=== PATIENT | female | born 1980 | race Caucasian/White ===

== ENCOUNTER 2023-08-09 15:32 | Inpatient (IN) | payer MEDICAID, SELFPAY ==
[2023-08-09] VITALS (21 sets, daily range): BP systolic 00–150; BP diastolic 00–93; PULSE 0–93; RESP 0–22; TEMP -17.7–36.8; O2SAT 0–100; BMI 33.1; BMI 27.4; BMI 30.4
--- NOTE | 2023-08-09 15:29 | ECG_ITS ---
APPROVED REPORT Exam: Resting ECG HR:69 bpm ECG Measurements Heart Rate 69 AXES IL 147 P 33 QRSd 98 QRS -80 QT 384 T 54 QTc 403 Conclusion SINUS RHYTHM LEFT ANTERIOR FASCICULAR BLOCK [QRS AXIS <= -45, QR IN I, RS IN II] ANTERIOR MYOCARDIAL INFARCTION , POSSIBLY ACUTE [40+ ms Q WAVE AND/OR ST/T ABNORMALITY IN V3/V4] ACUTE ME Electronically signed by : GALINDO ORR, 08/13/2023 16:15:45
--- NOTE | 2023-08-09 15:31 | IR_ITS ---
APPROVED REPORT Patient Location: [facility] Operator: GIO Izquierdo RT (R) PROCEDURES Left heart catheterization Left ventriculogram Selective coronary angiogram Mechanical thrombectomy to the LAD Drug-eluting stent deployment to the proximal mid LAD Drug-eluting stent deployment to the proximal mid and distal dominant right coronary INDICATION Acute anterior ST elevation myocardial infarction, Coronary artery disease, Right coronary artery stenosis with multivessel disease Informed consent was obtained prior to the procedure. COMPLICATIONS NONE Estimated Blood Loss: LESS THAN 10 ML TECHNIQUE One percent lidocaine used to anesthetize the right anterior aspect of the wrist. The right radial artery was accessed via the Seldinger technique. A 6 Yi sheath was placed in the right radial artery. 2.5 mg of Verapamil, 800 mcg of nitroglycerin, 1mg Lidocaine and 5000 U Heparin were given through the arterial sheath. The papa catheter was also used to perform left heart catheterization, left ventriculogram and selective coronary angiogram. At the end the diagnostic angiogram therapeutic heparin had already been administered through the arterial sheath and the guide catheter was placed in the left main artery followed by Choice PT extra-support wire being pushed through the occlusion. A penumbra mechanical thrombectomy catheter was used to mechanically aspirate a large thrombus thereby restoring CANDELARIO-3 flow. A 3 mm x 22 mm Jackson frontier stent was deployed at 20 bruce reducing the stenosis to 0%. A 3.5 x 12 mm noncompliant balloon was placed in the proximal and midportion and deployed at 20 bruce to further post dilate giving better stent expansion. CANDELARIO 0 flow was present at the beginning of the procedure with CANDELARIO-3 flow at the end of the procedure. Following this the right coronary artery angiogram was performed and the Choice PT extra-support wire was placed distally. A 3 mm x 38 mm Stroud frontier stent was deployed at 24 bruce in the mid to distal portion reducing the stenosis. A 3.5 x 30 mm Jackson frontier stent was placed proximal to this yet still overlapping and deployed at 20 bruce. The balloon was advanced and deployed at 20 bruce throughout the 38 mm stent. CANDELARIO-3 flow was present before and after the procedure. At the end the procedure the apparatus was removed the sheath was removed and hemostasis was achieved and TR banding patient transferred to postop holding in stable condition ANGIOGRAPHIC RESULTS The left main artery Normal The left anterior descending artery Initially proximally thrombosed however following revascularization there was wide patency of the LAD with CANDELARIO-3 flow throughout The circumflex artery Nondominant with 30 to 40% stenosis in the first obtuse marginal artery The right coronary artery Large dominant with proximal 60% stenosis followed by an additional 60 to 70% stenosis with a mid vessel 80% stenosis and distal 30% stenoses The CLAUDIO ventriculogram reveals Dilated ventricle anterior wall hypokinesis estimate ejection fraction 20% The left ventricular end-diastolic pressure 25 mmHg IMPRESSION Proximal LAD occlusion with successful mechanical thrombectomy restoring CANDELARIO-3 flow followed by drug-eluting stent to the proximal to mid LAD Severe disease throughout the dominant right coronary with successful stenting of the proximal mid and distal right coronary severe disease reduced to 0% with 2 contiguous drug-eluting stents Dilated ventricle with reduced ejection fraction Elevated LVEDP PLAN 1. Effient 10 mg daily plus aspirin 81 mg daily 2. LDL goal of 55 to proceed with high intensity statin 3. Start Entresto once hemodynamically stable 4. Echocardiogram with anticipated LifeVest prior to discharge home 5. Supportive care 6. Avoidance of tobacco products Electronically signed by : Ozzie May MD 08/09/2023 16:15:55
--- NOTE | 2023-08-09 15:56 | ED_ITS ---
Discharge Plan Disposition Patient Disposition: Admitted Clinical Impressions Clinical Impression: STEMI (ST elevation myocardial infarction) Discharge ED Provider: Tana Bower [facility] General Chief Complaint: Chest Pain Stated Complaint: STEMI ALERT Time Seen by Provider: 08/09/23 15:35 Mode of Arrival: EMS Source of Information: Patient and EMS Limitations: No Limitations Description of Symptoms (Recalled from ER Triage Doc. by RN): pt called ems for misternal chest pain that started at 0900 today and got worse despite treatments at home for anxiety and acid reflux, pt states the pain radiated into left side. EMS called a field stemi and experimental machining lab manager team notified. ems gave 324mg ASA, 0.4 mg SL nitro, 25 mcg fentanyl, and 4mg zofran. Lalo met patient in ER for 12 lead at 1530 and transported patient on monitor with zoll pads to experimental machining lab manager, no vitalls, labs, or studies collected History of Present Illness HPI narrative: This patient is a 43-year-old female with history of tobacco use disorder presenting to the emergency department for evaluation with concern for chest pain. Per EMS, they were called to the patient's home for chest pain that started around 9:00 this morning. They were concerned for STEMI on ECG, so they gave the patient 324 mg of aspirin, 0.4 mg of sublingual nitroglycerin. They also gave her 25 mcg of fentanyl as well as 4 mg of Zofran for pain and nausea. Patient states initially she thought that this pain was indigestion, however got progressively worse throughout the day. It substernal radiates to the left side. Nothing is made it better or worse. Upon arrival, after review of pre- Hospital EKG, I activated Training Developer. Related Data Allergies Allergy/AdvReac Type Severity Reaction Status Date / Time No Known Allergies Allergy Verified 08/09/23 15:33 [facility] Disclaimer: The information contained in this section may have been updated after the pat ient was seen, as this information can be updated by other users. Social History Smoking Status: Current every day smoker alcohol intake: never current occupational status: employed Travel in the last 8 weeks: None ROS Obtained: Yes All systems reviewed & no additional complaints except as documented Physical Exam General General appearance: alert, in no apparent distress and obese Comment: Uncomfortable appearing Head Head exam: atraumatic and normocephalic Eye Eye exam: Present normal appearance, PERRL and EOMI ENT ENT exam: Present normal exam, normal oropharynx, mucous membranes moist and normal external ear exam Neck Neck exam: Present normal inspection, full ROM and trachea midline; Absent tenderness Chest Chest inspection: Present normal inspection and symmetric chest wall rise; Absent tenderness Respiratory Respiratory exam: Present normal lung sounds bilaterally; Absent respiratory distress, wheezes, stridor or accessory muscle use Cardiovascular Cardiovascular exam: Present regular rate and normal rhythm Abdominal Exam Abdominal exam: Present soft; Absent distention, tenderness or guarding Extremities Exam Extremities exam: Present normal inspection, full ROM and normal capillary refill; Absent tenderness or edema Back Exam Back exam: Present normal inspection and full ROM; Absent tenderness Neurological Exam Neurological exam: Present alert, oriented X3, CN II-XII intact and normal gait; Absent motor sensory deficit Psychiatric Psychiatric exam: Present normal affect and normal mood Skin Skin exam: Present warm and dry HEART Score HEART Score HEART Score assessment performed?: No Critical Care Critical Care Time Critical Care Time: No Medical Decision Making Liu Inquiry Pt receiving controlled substance: No Vital Signs Vital Signs: 08/09/23 15:29 08/09/23 15:49 Temperature 0 F L Pulse Rate 0 L Respiratory Rate 20 0 L Blood Pressure 00/00 L 02 Sat by Pulse Oximetry 98 Response Orders (Tests/Meds): ED MEDICATIONS Generic Name Dose Route Start Last Admin Trade Name Freq PRN Reason Stop Dose Admin Fentanyl Citrate 50 mcg 08/09/23 15:33 Fentanyl 100mcg/2ml Vial IV 08/10/23 03:33 Q3MINP PRN Moderate to Severe Pain (4-10) Fentanyl Citrate 25 mcg 08/09/23 15:33 Fentanyl 250mcg/5ml Vial IV 08/10/23 03:33 Q3MINP PRN Moderate to Severe Pain (4-10) Fentanyl Citrate 50 mcg 08/09/23 15:33 Fentanyl 250mcg/5ml Vial IV 08/10/23 03:33 Q3MINP PRN Moderate to Severe Pain (4-10) Fentanyl Citrate 25 mcg 08/09/23 15:33 Fentanyl 100mcg/2ml Vial IV 08/10/23 03:33 Q3MINP PRN Moderate to Severe Pain (4-10) Flumazenil 0.2 mg 08/09/23 15:33 Flumazenil 0.1mg/Ml 5ml Vial IV 08/10/23 03:33 NEEDED PRN Sedation Heparin Sodium (Porcine) 10,000 unit 08/09/23 15:33 Heparin 1,000 Units/Ml 10ml Vial (Training Developer) IV 08/09/23 19:33 NEEDED PRN Emergency Box Annealing Furnace Operator Hydralazine HCl 20 mg 08/09/23 15:33 Hydralazine 20mg/Ml Vial IV 08/09/23 19:33 ONCE PRN sbp>160 Adenosine 180 mg/ Sodium 90 mls @ 458.039 mls/hr 08/09/23 15:33 Chloride IV 08/09/23 19:33 ONCE PRN fractional flow reserve 180 MCG/KG/MIN Adenosine 90 mg/ Sodium 90 mls @ 916.078 mls/hr 08/09/23 15:33 Chloride IV 08/09/23 19:33 ONCE PRN fractional flow reserve 180 MCG/KG/MIN Sodium Chloride 1,000 mls @ 25 mls/hr 08/09/23 15:45 Sod Chloride 0.9% 500ml Bag IV 08/10/23 15:33 .Q25H JT Labetalol HCl 20 mg 08/09/23 15:33 Labetalol 20mg/4ml Syringe IV 08/09/23 19:33 ONCE PRN sbp>160 Midazolam HCl 1 mg 08/09/23 15:33 Midazolam 2mg/2ml Vial IV 08/10/23 03:33 Q3MINP PRN Sedation Midazolam HCl 1 mg 08/09/23 15:33 Midazolam Hcl 1mg/1ml 5ml Vial IV 08/10/23 03:33 Q3MINP PRN Sedation Naloxone HCl 0.4 mg 08/09/23 15:33 Naloxone 0.4mg/Ml Vial IV 08/10/23 03:33 Q5MINP PRN Decreased Respirations Nitroglycerin 800 mcg 08/09/23 15:33 Nitroglycerin 800mcg/8ml Syr (Training Developer) IA 08/09/23 19:33 NEEDED PRN Emergency Box Annealing Furnace Operator Protamine Sulfate 50 mg 08/09/23 15:33 Protamine Sulfate 50mg/5ml Vial (Training Developer) IV 08/09/23 19:33 ONCE PRN act>200 Discontinued Medications Generic Name Dose Route Start Last Admin Trade Name Freq PRN Reason Stop Dose Admin Diphenhydramine HCl 50 mg 08/09/23 15:33 Diphenhydramine 50mg/Ml Vial IV 08/09/23 15:34 ONCE ONE Heparin Sodium/Sodium Chloride 3,000 unit 08/09/23 15:33 Heparin 1,000 Units/500ml Ns (Training Developer) IV 08/09/23 15:34 ONCE ONE Lidocaine HCl 20 ml 08/09/23 15:33 Lidocaine 1% 10ml Mdv IJ 08/09/23 15:34 ONCE ONE Lidocaine HCl 20 ml 08/09/23 15:33 Lidocaine 1% 5ml Pf Vial IJ 08/09/23 15:34 ONCE ONE Verapamil HCl 2.5 mg 08/09/23 15:33 Verapamil 2.5mg/Ml 2ml Vial IV 08/09/23 15:34 ONCE ONE ORDERS Category Date Time Status Basic Metabolic Panel Stat Lab 08/09/23 15:33 Ordered Complete Blood Count Auto Diff Stat Lab 08/09/23 15:33 Ordered MDM Narrative Medical Decision Narrative: In summary, this patient is a 43-year-old female presenting to the Emergency Department for evaluation of chest pain. Differential diagnoses considered include but are not limited to STEMI, ACS, dysrhythmia, GERD, costochondritis. Ruling out the most morbid conditions drove assessment. It should be noted patient's history includes tobacco use disorder which is not at goal therapy. This complicates all aspects of care by increasing patient's risk for morbidity. On exam, the patient is uncomfortable appearing. Given STEMI on prehospital EKG, Training Developer was activated by myself. Cardiology arrived at bedside and wanted twelve-lead EKG, which confirmed STEMI. ECG interpreted by myself immediately upon patient's arrival at 1530 demonstrated normal sinus rhythm with acute ST elevations in the anterolateral leads concerning for acute ischemia. She also left anterior fascicular block. Patient then taken to Training Developer right away prior to lab evaluation or imaging for cardiac catheterization with concern for STEMI. Patient was taken in stable condition.
[2023-08-09] MEDS: VERAPAMIL 2.5MG/ML 2ML VIAL 2.5 MG IV (16:00)
[2023-08-09] MEDS: diphenhydrAMINE 50MG/ML VIAL 50 MG IV (16:00)
[2023-08-09] MEDS: HEPARIN 1,000 UNITS/ML 10ML VIAL (CATH LAB) 10000 UNIT IV (16:01)
[2023-08-09] MEDS: NITROGLYCERIN 800MCG/8ML SYR (CATH LAB) 800 MCG IA (16:01)
[2023-08-09] MEDS: LIDOCAINE 1% 10ML MDV 20 ML IJ (16:01)
[2023-08-09] MEDS: HEPARIN 1,000 UNITS/500ML NS (CATH LAB) 3000 UNIT IV (16:01)
[2023-08-09] MEDS: 0.9 % SODIUM CHLORIDE 500 ML 25 ML IV (16:02)
[2023-08-09] MEDS: MIDAZOLAM HCL 1MG/1ML 5ML VIAL 1 MG IV (16:03)
[2023-08-09] MEDS: FENTANYL 100MCG/2ML VIAL 50 MCG IV (16:03)
--- NOTE | 2023-08-09 16:05 | PC.NURSE ---
Patient left er for greens laborer at 1531.
[2023-08-09] MEDS: PROMETHAZINE HCL 25MG/ML 1ML VIAL 25 MG IV (16:11)
[2023-08-09] MEDS: PRASUGREL 10MG TAB 60 MG PO (16:11)
[2023-08-09] MEDS: IOPAMIDOL-370 (76%);100ML BOTTLE 120 ML IV (16:26)
[2023-08-09 16:29] LABS: CATHL Activated Clotting Time > 400 SEC (74-125)
--- NOTE | 2023-08-09 16:35 | ECG_ITS ---
APPROVED REPORT Exam: Resting ECG HR:79 bpm ECG Measurements Heart Rate 79 AXES AR 137 P 44 QRSd 92 QRS 259 QT 378 T 64 QTc 412 Conclusion SINUS RHYTHM ANTEROLATERAL MYOCARDIAL INFARCTION , PROBABLY RECENT [40+ ms Q WAVE IN I/aVL/V3-V6] ACUTE [place] INTERPRETATION BASED ON A DEFAULT AGE OF 42 YEARS UNCONFIRMED REPORT Electronically signed by : Shorty Rubalcava MD 08/11/2023 12:25:06
--- NOTE | 2023-08-09 16:54 | PC.NURSE ---
arrived by galener from optical laboratory mechanic
--- NOTE | 2023-08-09 17:22 | PC.NURSE ---
spoke with Dr. Allred about status of this patient, Dr. Allred stated this patient could be med/surg
[2023-08-09] MEDS: HEPARIN SODIUM 5,000 UNIT/ML VIAL 5000 UNIT SQ (17:32)
[2023-08-09 17:47] LABS: Basophils # 0.1 K/mm3 (0-0.2); Basophils % 0.5 % (0.1-2.0); Eosinophils % 0.1 % (0.1-12.0); Hematocrit 49.2 % (37.0-47.0); Hemoglobin 15.9 g/dL (12.2-16.2); Lymphocytes # 2.1 K/mm3 (0.7-4.5); Lymphocytes % 10.3 % (10-50); Mean Corpuscular HGB Conc 32.4 g/dL (31.8-35.4); Mean Corpuscular Hemoglobin 31.3 pg (27.0-31.2); Mean Corpuscular Volume 96.6 fl (81-99); Mean Platelet Volume 8.4 fl (7.4-10.4); Monocytes # 0.5 K/mm3 (0.1-1.0); Monocytes % 2.5 % (1.7-9.3); Neutrophils # 17.9 K/mm3 (1.8-7.8); Neutrophils % 86.6 % (37.0-80.0); Platelet Count 274 K/mm3 (142-424); Red Blood Count 5.09 M/mm3 (4.20-5.40); Red Cell Distribution Width 14.3 % (11.5-17.5); White Blood Count 20.6 K/mm3 (4.8-10.8)
[2023-08-09 17:49] LABS: MANUAL DIFFERENTIAL MANUAL DIFFERENTIAL (MANUAL DIFF)
--- NOTE | 2023-08-09 17:49 | PC.NURSE ---
Pt is extremely drowsy at this time. no family is present with her. pt has never been to this facility and no medical history or medications are available in system. when asked if pt has anyone she wants me to notify of her admission, pt indicates her mom Maryana Serna. pt indicated phone number for mom. when number was called, number only beeped. when asking pt again, pt states that she does not have any number for her mom. when asked who she would like to make decisions for her, she would only shrug her shoulders. will attempt admission again when pt is more alert.
[2023-08-09 17:54] LABS: Chloride 108 mmol/L (98-107); Potassium 3.8 mmoL/L (3.5-5.1); Sodium 136 mmol/L (136-145)
[2023-08-09 17:57] LABS: Anion Gap 13.8 mEq/L (5-15); Blood Urea Nitrogen 4 mg/dl (7-17); Carbon Dioxide 18 mmol/L (22.0-30.0); Creatinine Clearance Estimated 198 mL/min (50-200); Estimated Glomerular Filt Rate 136 ml/min (>60); GFR (African American) 165 ML/MIN (>60); Glucose 116 mg/dl (74-100)
[2023-08-09 18:10] LABS: Lymphocytes % 21 % (10-50); Monocytes % 1 % (2-9); Neutrophils % 78 % (42-76); Platelet Estimate Normal; RBC Morphology Normal; Total Cells Counted 100
--- NOTE | 2023-08-09 18:23 | PC.NURSE ---
pt came up to the floor this afternoon d/t STEMI. pt had heart cath this afternoon d/t STEMi. refer to terrazzo laborer note for further detail. pt slightly unaware of surroundings d/t sedation used during cath. lung sounds clear throughout. terrazzo laborer vitals are still in place. bowel sounds active x4 quadrants. lung sounds clear throughout. no new orders at this time.
--- NOTE | 2023-08-09 18:37 | PC.NURSE ---
pt is more awake at this time, visitor in room was able to assist pt to navigate her phone and contact her mom. pt also states that she does not have a pcp
--- NOTE | 2023-08-09 19:00 | PC.NURSE ---
All care and documentation provided by Zoya IRELAND was completed under my direct supervision. Bozena Suarez RN
--- NOTE | 2023-08-09 19:04 | PC.NURSE ---
1810-2ml air removed, no bleeding/hematoma noted 1825-2ml air removed, no bleeding/hematoma noted 1840-2ml air removed, no bleeding/hematoma noted 1855-2ml air removed, no bleeding/hematoma noted
--- NOTE | 2023-08-09 20:10 | ECG_ITS ---
APPROVED REPORT Exam: Resting ECG HR:73 bpm ECG Measurements Heart Rate 73 AXES MA 137 P 43 QRSd 88 QRS 195 QT 382 T 75 QTc 408 Conclusion SINUS RHYTHM WITH FREQUENT VENTRICULAR PREMATURE COMPLEXES POSSIBLE RIGHT VENTRICULAR HYPERTROPHY [SOME/ALL OF: PROMINENT R IN V1, LATE TRANSITION, RAD, YOVANNY, SSS] ANTEROLATERAL MYOCARDIAL INFARCTION , PROBABLY RECENT [40+ ms Q WAVE IN I/aVL/V3-V6] ACUTE [place] UNCONFIRMED REPORT Electronically signed by : Shorty Rubalcava MD 08/11/2023 12:25:03
[2023-08-09 20:29] LABS: Magnesium 1.8 mg/dl (1.6-2.3)
--- NOTE | 2023-08-09 20:59 | P.HP_ITS ---
History of Present Illness *Admission Date: 08/09/23 *Reason for visit:: STEMI *History of present illness: This is a 43-year-old female with past medical history of tobacco use disorder, hypertension who presents emergency department today with chest pain. EMS was called to the patient's home for chest pain that started around 9 this morning. She was noted to have a EKG with STEMI in the field which was activated. Upon arrival to the emergency department STEMI was confirmed and patient was taken to the Day Care Provider. She underwent 3 stents with PCI with 1 to the LAD and 2 to the RCA. Post cath vital signs have been stable. She is admitted to the hospitalist service On my assessment patient is sleeping but arousable. States that she feels awful . States that she still has soreness in her chest. Repeat EKG with PVCs versus possible secondary type I block. Patient otherwise without acute abnormalities. Per cardiology, continue Effient and aspirin daily, echocardiogram in a.m. [facility] Disclaimer: The information contained in this section may have been updated after the patient was seen, as this information can be updated by other users. Medical History Anxiety GERD (gastroesophageal reflux disease) Surgical History (Updated 08/09/23 @ 18:55 by Bozena Suarez RN) H/O dilation and curettage Social History (Updated 08/09/23 @ 18:56 by Bozena Suarez RN) Smoking Status: Current every day smoker alcohol intake: current current occupational status: employed Travel in the last 8 weeks: None Review of Systems Review of Systems Review of systems:: other (All other ROS negative except for HPI.) Meds Home Medications and Allergies New Prescriptions to Start Prescriptions: Allergies Allergy/AdvReac Type Severity Reaction Status Date / Time No Known Allergies Allergy Verified 08/09/23 15:33 Exam Data for Last 24 hours Vital signs and Labs for Last 24 Hours: Temp Pulse Resp BP Pulse Ox O2 Del Method 98.1 F 63 16 121/84 96 Room Air 08/09/23 20:00 08/09/23 20:00 08/09/23 20:00 08/09/23 20:00 08/09/23 20:00 08/09/23 20:00 Laboratory Results - last 24 hr 08/09/23 15:46: Activated Clotting Time > 400 H* 08/09/23 17:39: WBC 20.6 H*, RBC 5.09, Hgb 15.9, Hct 49.2 H, MCV 96.6, MCH 31.3 H, MCHC 32.4, RDW 14.3, Plt Count 274, MPV 8.4, Neut % (Auto) 86.6 H, Lymph % (Auto) 10.3, [place] % (Auto) 2.5, Eos % (Auto) 0.1, Baso % (Auto) 0.5, Neut # (Auto) 17.9 H, Lymph # (Auto) 2.1, [place] # (Auto) 0.5, Eos # (Auto) 0.0, Baso # (Auto) 0.1, Total Counted 100, Neutrophils % (Manual) 78 H, Lymphocytes % (Manual) 21, Monocytes % (Manual) 1 L, Platelet Estimate Normal, RBC Morphology Normal, Sodium 136, Potassium 3.8, Chloride 108 H, Carbon Dioxide 18 L, Anion Gap 13.8, BUN 4 L, Creatinine 0.50 L, Estimated Creat Clear 198, Estimated GFR 136, Est GFR ( Amer) 165, Glucose 116 H, Calcium 9.0, Magnesium 1.8 I & O for Last 24 hours: Intake & Output 08/06/23 08/07/23 08/08/23 08/09/23 23:59 23:59 23:59 23:59 Weight 80.484 kg Constitutional Constitutional: no acute distress *Routine HEENT Exam Head: Present normocephalic Eye: Present EOMI and PERRL ENT: Present mucous membranes moist *Routine Neck Exam Neck: Present supple; Absent lymphadenopathy *Routine Respiratory Exam Respiratory: Present CTA bilaterally *Routine Cardiovascular Exam Cardiovascular: Present irregular rhythm *Routine Abdominal Exam Abdominal: Present soft and normoactive bowel sounds; Absent tenderness *Routine Rectal Exam Rectal:: deferred *Routine Genitalia Exam Genitalia:: deferred *Routine Extremities Exam Extremities: Absent cyanosis, clubbing or edema *Routine Skin Exam Skin: Present warm; Absent rash *Routine Neurological Exam Neurological: Present alert and oriented X3 Assessment and Plan *Assessment and plan (1) STEMI (ST elevation myocardial infarction): Status: Acute Qualifiers: Involved coronary artery: LAD coronary artery Qualified Code(s): I21.02 - ST elevation (STEMI) myocardial infarction involving left anterior descending coronary artery Category: Medical Code(s): I21.3 - ST elevation (STEMI) myocardial infarction of unspecified site (2) CAD (coronary artery disease): Status: Acute Qualifiers: Coronary Disease-Associated Artery/Lesion type: [place] artery Category: Medical Code(s): I25.10 - Atherosclerotic heart disease of [place] coronary artery without angina pectoris (3) Leukocytosis: Status: Acute Qualifiers: Leukocytosis type: other Qualified Code(s): D72.828 - Other elevated white blood cell count Category: Medical Code(s): D72.829 - Elevated white blood cell count, unspecified Plan #CAD #STEMI Underwent successful LAD thrombectomy with PCI with 3 NEIRSSA. 1 to the LAD, 2 to the RCA. Continue Effient and aspirin per cardiology Echocardiogram in the morning with possible discharge of LifeVest Monitor post-cath rhythm closely Tobacco cessation Entresto once hemodynamically A1c and lipid panel pending #Tobacco use Encourage abstinence #Leukocytosis No evidence of infection, likely clot burden Will monitor for further signs of DVT PPx subcu heparin
[2023-08-09] MEDS: ACETAMINOPHEN 325MG TAB 650 MG PO (21:37)
[2023-08-09] MEDS: HYDROCODONE/APAP 5/325 MG TABLET 1 TAB PO (21:37)
[2023-08-09] MEDS: MELATONIN 5MG TABLET 5 MG PO (23:37)
[2023-08-10] VITALS (18 sets, daily range): BP systolic 95–120; BP diastolic 67–79; PULSE 59–90; RESP 16–25; TEMP 36.7–37; O2SAT 93–100; BMI 29.9
[2023-08-10] MEDS: HEPARIN SODIUM 5,000 UNIT/ML VIAL 5000 UNIT SQ ×3 (01:24→16:17)
[2023-08-10 06:05] LABS: Basophils # 0.2 K/mm3 (0-0.2); Basophils % 1.2 % (0.1-2.0); Eosinophils # 0.2 K/mm3 (0.0-0.4); Eosinophils % 0.8 % (0.1-12.0); Hemoglobin 15.6 g/dL (12.2-16.2); Lymphocytes # 5.8 K/mm3 (0.7-4.5); Lymphocytes % 30.4 % (10-50); Mean Corpuscular HGB Conc 32.6 g/dL (31.8-35.4); Mean Corpuscular Volume 95.2 fl (81-99); Mean Platelet Volume 8.3 fl (7.4-10.4); Monocytes # 1.1 K/mm3 (0.1-1.0); Monocytes % 5.7 % (1.7-9.3); Neutrophils # 11.8 K/mm3 (1.8-7.8); Platelet Count 299 K/mm3 (142-424); Red Blood Count 5.04 M/mm3 (4.20-5.40); Red Cell Distribution Width 14.5 % (11.5-17.5)
[2023-08-10 06:07] LABS: MANUAL DIFFERENTIAL MANUAL DIFFERENTIAL (MANUAL DIFF)
[2023-08-10 06:10] LABS: Anion Gap 11.8 mEq/L (5-15); Blood Urea Nitrogen 7 mg/dl (7-17); Calcium 9.4 mg/dl (8.4-10.2); Carbon Dioxide 22 mmol/L (22.0-30.0); Chloride 107 mmol/L (98-107); Creatinine Clearance Estimated 133 mL/min (50-200); Estimated Glomerular Filt Rate 92 ml/min (>60); GFR (African American) 112 ML/MIN (>60); Glucose 94 mg/dl (74-100); Potassium 3.8 mmoL/L (3.5-5.1); Sodium 137 mmol/L (136-145)
[2023-08-10 06:56] LABS: Chol/HDL Ratio 6.3 (1-3.5); Cholesterol 258 mg/dl (140-200); HDL Cholesterol 41 mg/dl (40-60); Triglycerides 282 mg/dl (30-150); VLDL Cholesterol 56 mg/dL (0-40)
--- NOTE | 2023-08-10 07:00 | CA_ITS ---
APPROVED REPORT EXAM: Comprehensive 2D, Doppler, and color-flow Echocardiogram Die Sinker: Paulette Robison CRT Ht: 5 ft 4 in Wt: 177lbs BSA: 1.86 BP: 121/84 mmHg Indications: Chest Pain, STEMI Echo Enhancing Agent Indication: Rule out thrombus Agent(s) / Amount(s) Used: Definity 2 cc 2D Dimensions LA Volume 40.40 mL LA Volume Index 21.30 mL/m2 (M/F) 16-34 M-Mode Dimensions RVDd 2.57 cm (0.9-2.6) LA Diam 3.78 cm (1.9-4.0) LVDd 5.07 cm (3.5-5.7) LVDs 3.61 cm (3.5-5.7) IVSd 1.43 cm (0.6-1.1) PWd 1.04 cm (0.6-1.1) EF (Teich) 55.10% FS 28.80% EDV (Teich) 122.10 mL TAPSE 1.76 (<1.7) ESV (Teich) 54.80 mL LV Diastology MED A' 11.30 cm/s LAT A' 11.30 cm/s Aortic Valve AI PHT 449.00 ms AO Peak GR. 5.90 mmHg Pulmonary Valve PV Peak Velocity 102.0 (50-150 cm/s) Tricuspid Valve TR P. Velocity 264.00 cm/s RAP Estimate 10.00 mmHg RVSP 38.00 mmHg Left Ventricle The left ventricle is normal size. Left ventricular systolic function is severely decreased. There is increased LV wall thickness. There is severe global hypokinesis present. The mid to distal henao, including the anterior, septal, anteroseptal, and inferoseptal LV henao are akinetic. The LV apex is also akinetic. Diastolic function is indeterminate. No left ventricle thrombus noted on this study. LVEF is 25%. Right Ventricle The right ventricle is normal size. The right ventricular systolic function is normal. Atria The left atrium size is normal. The right atrium size is normal. There is no Doppler evidence of interatrial shunt. Aortic Valve The aortic valve opens well. There is no aortic valvular stenosis. Trace aortic regurgitation. Mitral Valve The mitral valve is normal in structure. No evidence of mitral valve stenosis. Trace mitral regurgitation. Tricuspid Valve The tricuspid valve leaflets are thin and pliable. Mild tricuspid regurgitation. RVSP is 45-50 mmHg. Pulmonic Valve The pulmonary valve is normal in structure. Trace pulmonic regurgitation. Great Vessels The aortic root is normal in size. The ascending aorta is normal in size. The IVC is dilated, collapses < 50% with respirophasic variation. RA pressure is estimated at 15 mmHg. Pericardium There is no pericardial effusion. Other Information Study Quality: Fair Conclusion Severely reduced LV systolic function (LVEF 25%). Mid to distal henao, including the anterior, septal, anteroseptal, and inferoseptal LV henao are akinetic. The LV apex is also akinetic. Mild TR. Elevated RVSP 45-50 mmHg. Electronically signed by : Dominga Damon MD 08/10/2023 12:14:06
[2023-08-10 07:07] LABS: Direct LDL Cholesterol 145.67 mg/dL (100-129)
[2023-08-10 08:14] LABS: Eosinophils % 1 % (0-3); Lymphocytes % 36 % (10-50); Monocytes % 13 % (2-9); Neutrophils % 45 % (42-76); Total Cells Counted 100
[2023-08-10 08:17] LABS: Platelet Estimate Normal; RBC Morphology Normal
[2023-08-10] MEDS: PRASUGREL 10MG TAB 10 MG PO (08:38)
[2023-08-10] MEDS: ASPIRIN 81MG CHEWABLE TABLET 81 MG PO (08:38)
--- NOTE | 2023-08-10 09:30 | PC.NURSE ---
pt up to the shower at this time.
--- NOTE | 2023-08-10 10:33 | ECG_ITS ---
APPROVED REPORT Exam: Resting ECG HR:64 bpm ECG Measurements Heart Rate 64 AXES DC 138 P 35 QRSd 87 QRS 248 QT 396 T 91 QTc 406 Conclusion SINUS RHYTHM RIGHT AXIS DEVIATION [QRS AXIS > 100] LOW QRS VOLTAGE IN EXTREMITY LEADS [QRS DEFLECTION < 0.5 mV IN LIMB LEADS] ANTERIOR MYOCARDIAL INFARCTION , PROBABLY RECENT [40+ ms Q WAVE AND/OR ST/T ABNORMALITY IN V3/V4] ACUTE IN UNCONFIRMED REPORT Electronically signed by : Shorty Rubalcava MD 08/11/2023 12:24:51
[2023-08-10] MEDS: SACUBITRIL/VALSARTAN 24-26MG TABLET 1 EACH PO ×2 (10:53→20:12)
--- NOTE | 2023-08-10 13:02 | P.CONCA_ITS ---
History of Present Illness History of Present Illness Consult date: 08/09/23 Requesting physician: Isaac Allred Consult reason: chest pain Chief complaint: Chest pain History of present illness: 43-year-old white female without known chronic medical problems, daily smoker. Patient states she has been under significant stress due to personal reasons recently. Yesterday was at home and began feeling severe sudden onset chest pressure, no modifying factors. She called EMS and told him she thought she was having a heart attack. Patient was found to have anterolateral ST elevations and transported immediately to ER where she underwent thrombectomy and stenting of LAD. She also had numerous severe lesions in RCA which was stented successfully, left circumflex 30-40%, reduced EF. I am seeing her at the [facility] she reports symptoms are improved, vitals and labs are stable, echo is pending. [facility] Disclaimer: The information contained in this section may have been updated after the patient was seen, as this information can be updated by other users. Medical History Anxiety GERD (gastroesophageal reflux disease) Surgical History H/O dilation and curettage Social History Smoking Status: Current every day smoker alcohol intake: current current occupational status: employed Travel in the last 8 weeks: None Review of Systems Constitutional Constitutional: Denies fatigue and Denies weakness Eyes Eyes: Denies loss of vision ENT Ears, Nose, Mouth, and Throat: Denies hearing loss and Denies vertigo *Cardiovascular Cardiovascular: Reports chest pain, Denies dyspnea and Denies syncope *Respiratory Respiratory: Denies cough and Denies dyspnea *Gastrointestinal Gastrointestinal: Denies change in stool character, Denies nausea and Denies vomiting *Musculoskeletal Musculoskeletal: Denies muscle weakness Integumentary/Breasts Skin/Breast: Denies changing lesions *Neurologic Neurologic: Denies loss of vision, Denies syncope, Denies vertigo and Denies weakness Endocrine Endocrine: Denies fatigue Exam Data for Last 24 hours Vital signs and Labs for Last 24 Hours: Temp Pulse Resp BP Pulse Ox O2 Del Method 98.5 F 66 16 116/76 100 Room Air 08/10/23 11:49 08/10/23 11:49 08/10/23 11:49 08/10/23 11:49 08/10/23 11:49 08/10/23 12:42 Laboratory Results - last 24 hr 08/09/23 15:46: Activated Clotting Time > 400 H* 08/09/23 17:39: WBC 20.6 H*, RBC 5.09, Hgb 15.9, Hct 49.2 H, MCV 96.6, MCH 31.3 H, MCHC 32.4, RDW 14.3, Plt Count 274, MPV 8.4, Neut % (Auto) 86.6 H, Lymph % (Auto) 10.3, [place] % (Auto) 2.5, Eos % (Auto) 0.1, Baso % (Auto) 0.5, Neut # (Auto) 17.9 H, Lymph # (Auto) 2.1, [place] # (Auto) 0.5, Eos # (Auto) 0.0, Baso # (Auto) 0.1, Total Counted 100, Neutrophils % (Manual) 78 H, Lymphocytes % (Manual) 21, Monocytes % (Manual) 1 L, Platelet Estimate Normal, RBC Morphology Normal, Sodium 136, Potassium 3.8, Chloride 108 H, Carbon Dioxide 18 L, Anion Gap 13.8, BUN 4 L, Creatinine 0.50 L, Estimated Creat Clear 198, Estimated GFR 136, Est GFR ( Amer) 165, Glucose 116 H, Calcium 9.0, Magnesium 1.8 08/10/23 05:15: WBC 19.0 H, RBC 5.04, Hgb 15.6, Hct 48.0 H, MCV 95.2, MCH 31.0, MCHC 32.6, RDW 14.5, Plt Count 299, MPV 8.3, Neut % (Auto) 62.0, Lymph % (Auto) 30.4, [place] % (Auto) 5.7, Eos % (Auto) 0.8, Baso % (Auto) 1.2, Neut # (Auto) 11.8 H, Lymph # (Auto) 5.8 H, [place] # (Auto) 1.1 H, Eos # (Auto) 0.2, Baso # (Auto) 0.2, Total Counted 100, Neutrophils % (Manual) 45, Band Neutrophils % 5.0, Lymphocytes % (Manual) 36, Monocytes % (Manual) 13 H, Eosinophils % (Manual) 1, Platelet Estimate Normal, RBC Morphology Normal, Sodium 137, Potassium 3.8, Chloride 107, Carbon Dioxide 22, Anion Gap 11.8, BUN 7 D, Creatinine 0.70 D, Estimated Creat Clear 133, Estimated GFR 92, Est GFR ( Amer) 112 D, Glucose 94, Calcium 9.4, Triglycerides 282 H, Cholesterol 258 H, LDL Cholesterol Direct 145.67 H, VLDL Cholesterol 56 H, HDL Cholesterol 41, Cholesterol/HDL Ratio 6.3 H I & O for Last 24 hours: Intake & Output 08/07/23 08/08/23 08/09/23 08/10/23 23:59 23:59 23:59 23:59 Intake Total 120 / 120 Output Total 0 / 0 0 / 0 Balance 0 / 0 120 / 120 Weight 177 lb 7 oz 175 lb 3.2 oz Constitutional Constitutional: no acute distress and cooperative *Routine HEENT Exam Eye: Present PERRL *Routine Respiratory Exam Respiratory: Present CTA bilaterally; Absent accessory muscle use, wheezes or crackles *Routine Cardiovascular Exam Cardiovascular: Present RRR, Normal S1 and Normal S2; Absent murmur, gallop or rubs Comments: Right radial cath site normal on inspection and palpation *Routine Abdominal Exam Abdominal: Present soft; Absent tenderness *Routine Extremities Exam Extremities: Present pulses intact; Absent cyanosis or edema *Routine Skin Exam Skin: Present intact; Absent erythema or wounds *Routine Neurological Exam Neurological: Present alert and oriented X3 Routine Psychiatric Exam Psychiatric: Present cooperative Meds Home Medications and Allergies Home Medications Medication Instructions Recorded Confirmed Type No Known Home Medications 08/10/23 08/10/23 History New Prescriptions to Start Prescriptions: Allergies Allergy/AdvReac Type Severity Reaction Status Date / Time No Known Allergies Allergy Verified 08/09/23 15:33 Assessment and Plan *Assessment and plan (1) STEMI (ST elevation myocardial infarction): Status: Acute Qualifiers: Involved coronary artery: LAD coronary artery Qualified Code(s): I21.02 - ST elevation (STEMI) myocardial infarction involving left anterior descending coronary artery Category: Medical Code(s): I21.3 - ST elevation (STEMI) myocardial infarction of unspecified site (2) CAD (coronary artery disease): Status: Acute Qualifiers: Coronary Disease-Associated Artery/Lesion type: [place] artery Category: Medical Code(s): I25.10 - Atherosclerotic heart disease of [place] coronary artery without angina pectoris (3) HFrEF (heart failure with reduced ejection fraction): Status: Acute Category: Medical Code(s): I50.20 - Unspecified systolic (congestive) heart failure (4) Tobacco use: Status: Acute Category: Social Hx Code(s): Z72.0 - Tobacco use Plan MV-CAD s/p AW-STEMI and NERISSA to LAD/RCA 08/09/2023 - new dx this admission - CCS = 1, EKG with anterior q-waves - LHC - LAD thrombectomy, multiple stents to RCA, LCX 30-40% reduced EF - ECHO - EF 25-30% - Cont ASA, Effient - Add Atorvastatin, Toprol - pt will need cardiac rehab at discharge HFrEF, Ischemic Cardiomyopathy - new dx this admission with EF 25% on ECHO post LAD STEMI - ECHO - EF 25-30% - Does not appear volume overloaded - Plan: Start Entresto, Jardiance. No Aldactone due to low BP. Pt will need LifeVest Tob - advised complete cessation, pt agreeable to transdermal nicotine HLD - LDL 145, TG 282 - Atorvastatin added this admission 08/09: CV stable. Add GDMT and LifeVest for HFrEF. Need 48h observation post STEMI.
[2023-08-10] MEDS: METOPROLOL SUCCINATE XL 25MG TABLET 25 MG PO (13:18)
[2023-08-10] MEDS: EMPAGLIFLOZIN 10MG TABLET 10 MG PO (13:18)
--- NOTE | 2023-08-10 16:26 | PC.NURSE ---
pt alert and oriented t/o shift. ls cta. Sinus rhythm on monitor. abdomen soft, nontender, bs active. pt up as brian in room. pt did have a shower and linen change this shift. call light w/i reach.
--- NOTE | 2023-08-10 17:26 | P.PN_ITS ---
Subjective *Date: 08/10/23 *Time: 17:26 Interval history: patient is seen at bedside, denied CP, SOB, N/V Exam Data for Last 24 hours Vital signs and Labs for Last 24 Hours: Temp Pulse Resp BP Pulse Ox O2 Del Method 98.6 F 70 16 106/73 L 95 Room Air 08/10/23 16:00 08/10/23 16:00 08/10/23 15:40 08/10/23 15:40 08/10/23 15:40 08/10/23 17:00 Laboratory Results - last 24 hr 08/09/23 17:39: WBC 20.6 H*, RBC 5.09, Hgb 15.9, Hct 49.2 H, MCV 96.6, MCH 31.3 H, MCHC 32.4, RDW 14.3, Plt Count 274, MPV 8.4, Neut % (Auto) 86.6 H, Lymph % (Auto) 10.3, [place] % (Auto) 2.5, Eos % (Auto) 0.1, Baso % (Auto) 0.5, Neut # (A uto) 17.9 H, Lymph # (Auto) 2.1, [place] # (Auto) 0.5, Eos # (Auto) 0.0, Baso # (Auto) 0.1, Total Counted 100, Neutrophils % (Manual) 78 H, Lymphocytes % (Manual) 21, Monocytes % (Manual) 1 L, Platelet Estimate Normal, RBC Morphology Normal, Sodium 136, Potassium 3.8, Chloride 108 H, Carbon Dioxide 18 L, Anion Gap 13.8, BUN 4 L, Creatinine 0.50 L, Estimated Creat Clear 198, Estimated GFR 136, Est GFR ( Amer) 165, Glucose 116 H, Calcium 9.0, Magnesium 1.8 08/10/23 05:15: WBC 19.0 H, RBC 5.04, Hgb 15.6, Hct 48.0 H, MCV 95.2, MCH 31.0, MCHC 32.6, RDW 14.5, Plt Count 299, MPV 8.3, Neut % (Auto) 62.0, Lymph % (Auto) 30.4, [place] % (Auto) 5.7, Eos % (Auto) 0.8, Baso % (Auto) 1.2, Neut # (Auto) 11.8 H, Lymph # (Auto) 5.8 H, [place] # (Auto) 1.1 H, Eos # (Auto) 0.2, Baso # (Auto) 0.2, Total Counted 100, Neutrophils % (Manual) 45, Band Neutrophils % 5.0, Lymphocytes % (Manual) 36, Monocytes % (Manual) 13 H, Eosinophils % (Manual) 1, Platelet Estimate Normal, RBC Morphology Normal, Sodium 137, Potassium 3.8, Chloride 107, Carbon Dioxide 22, Anion Gap 11.8, BUN 7 D, Creatinine 0.70 D, Estimated Creat Clear 133, Estimated GFR 92, Est GFR ( Amer) 112 D, Glucose 94, Calcium 9.4, Triglycerides 282 H, Cholesterol 258 H, LDL Cholesterol Direct 145.67 H, VLDL Cholesterol 56 H, HDL Cholesterol 41, Cholesterol/HDL Ratio 6.3 H I & O for Last 24 hours: Intake & Output 08/07/23 08/08/23 08/09/23 08/10/23 23:59 23:59 23:59 23:59 Intake Total 650 / 650 Output Total 0 / 0 0 / 0 Balance 0 / 0 650 / 650 Weight 80.484 kg 79.469 kg Constitutional Constitutional: no acute distress *Routine HEENT Exam Head: Present normocephalic Eye: Present EOMI and PERRL ENT: Present mucous membranes moist *Routine Neck Exam Neck: Present supple; Absent lymphadenopathy *Routine Respiratory Exam Respiratory: Present CTA bilaterally *Routine Cardiovascular Exam Cardiovascular: Present RRR *Routine Abdominal Exam Abdominal: Present soft and normoactive bowel sounds; Absent tenderness *Routine Extremities Exam Extremities: Absent cyanosis, clubbing or edema *Routine Skin Exam Skin: Present warm; Absent rash *Routine Neurological Exam Neurological: Present alert and oriented X3 Assessment and Plan *Assessment and plan (1) STEMI (ST elevation myocardial infarction): Status: Acute Qualifiers: Involved coronary artery: LAD coronary artery Qualified Code(s): I21.02 - ST elevation (STEMI) myocardial infarction involving left anterior descending coronary artery Category: Medical Code(s): I21.3 - ST elevation (STEMI) myocardial infarction of unspecified site (2) CAD (coronary artery disease): Status: Acute Qualifiers: Coronary Disease-Associated Artery/Lesion type: [place] artery Category: Medical Code(s): I25.10 - Atherosclerotic heart disease of [place] coronary artery without angina pectoris (3) Leukocytosis: Status: Acute Qualifiers: Leukocytosis type: other Qualified Code(s): D72.828 - Other elevated white blood cell count Category: Medical Code(s): D72.829 - Elevated white blood cell count, unspecified Plan #CAD #STEMI Underwent successful LAD thrombectomy with PCI with 3 NERISSA. 1 to the LAD, 2 to the RCA Continue Effient and aspirin per cardiology Echocardiogram in the morning with possible discharge of LifeVest Monitor post-cath rhythm closely Tobacco cessation #Tobacco use Encourage abstinence #Leukocytosis No evidence of infection, likely clot burden Will monitor for further signs of DVT PPx subcu heparin Likely DC tomorrow after 48hr observation post STEMI
--- NOTE | 2023-08-10 18:28 | PC.NURSE ---
called Dr. Allred d/t pt requesting stool softener, verbal order for Docusate 100 mg BID PRN.
[2023-08-10] MEDS: DOCUSATE SODIUM 100 MG CAPSULE PO (18:40)
[2023-08-10] MEDS: MELATONIN 5MG TABLET 5 MG PO (20:12)
[2023-08-10] MEDS: HYDROCODONE/APAP 5/325 MG TABLET 1 TAB PO (20:12)
[2023-08-10] MEDS: ATORVASTATIN 40MG TABLET 80 MG PO (20:12)
[2023-08-11] VITALS: BP 91/53; PULSE 61; RESP 17; TEMP 37; O2SAT 99
[2023-08-11 04:00] VITALS: BP 104/72; PULSE 60; PULSE 85; RESP 23; TEMP 36.7; O2SAT 92; BMI 29.6
[2023-08-11] MEDS: HEPARIN SODIUM 5,000 UNIT/ML VIAL 5000 UNIT SQ ×2 (04:37→11:38)
[2023-08-11 06:12] LABS: Basophils # 0.2 K/mm3 (0-0.2); Basophils % 0.9 % (0.1-2.0); Eosinophils # 0.3 K/mm3 (0.0-0.4); Eosinophils % 1.4 % (0.1-12.0); Hematocrit 45.7 % (37.0-47.0); Hemoglobin 15.3 g/dL (12.2-16.2); Lymphocytes # 4.6 K/mm3 (0.7-4.5); Lymphocytes % 25.5 % (10-50); Mean Corpuscular HGB Conc 33.5 g/dL (31.8-35.4); Mean Corpuscular Hemoglobin 31.1 pg (27.0-31.2); Mean Platelet Volume 8.3 fl (7.4-10.4); Monocytes # 1.2 K/mm3 (0.1-1.0); Monocytes % 6.9 % (1.7-9.3); Neutrophils # 11.7 K/mm3 (1.8-7.8); Neutrophils % 65.2 % (37.0-80.0); Platelet Count 275 K/mm3 (142-424); Red Blood Count 4.91 M/mm3 (4.20-5.40); Red Cell Distribution Width 14.5 % (11.5-17.5)
[2023-08-11 06:13] LABS: MANUAL DIFFERENTIAL MANUAL DIFFERENTIAL (MANUAL DIFF)
[2023-08-11 06:23] LABS: Anion Gap 13.8 mEq/L (5-15); Blood Urea Nitrogen 11 mg/dl (7-17); Calcium 9.1 mg/dl (8.4-10.2); Carbon Dioxide 21 mmol/L (22.0-30.0); Chloride 107 mmol/L (98-107); Creatinine Clearance Estimated 131 mL/min (50-200); Estimated Glomerular Filt Rate 92 ml/min (>60); GFR (African American) 112 ML/MIN (>60); Glucose 100 mg/dl (74-100); Potassium 3.8 mmoL/L (3.5-5.1); Sodium 138 mmol/L (136-145)
[2023-08-11 07:47] LABS: Lymphocytes % 25 % (10-50); Monocytes % 11 % (2-9); Neutrophils % 63 % (42-76); Total Cells Counted 100
[2023-08-11 07:49] LABS: Platelet Estimate Normal; RBC Morphology Normal
[2023-08-11 08:00] VITALS: BP 108/42; PULSE 67; PULSE 70; RESP 19; TEMP 36.8; O2SAT 93; O2SAT 97
[2023-08-11] MEDS: ASPIRIN 81MG CHEWABLE TABLET 81 MG PO (08:10)
[2023-08-11] MEDS: PRASUGREL 10MG TAB 10 MG PO (08:10)
[2023-08-11] MEDS: SACUBITRIL/VALSARTAN 24-26MG TABLET 1 EACH PO (08:10)
[2023-08-11] MEDS: METOPROLOL SUCCINATE XL 25MG TABLET 25 MG PO (08:10)
[2023-08-11] MEDS: EMPAGLIFLOZIN 10MG TABLET 10 MG PO (08:10)
--- NOTE | 2023-08-11 08:31 | P.PN_ITS ---
Subjective Subjective Date: 08/11/23 Time: 10:00 Interval history: No events overnight. Patient up ambulating states she feels much better than on presentation. No chest pain shortness of breath or palpitations. She feels ready for discharge home. Exam Data for Last 24 hours Vital signs and Labs for Last 24 Hours: Temp Pulse Resp BP Pulse Ox O2 Del Method 98.3 F 67 19 108/42 L 97 Room Air 08/11/23 08:00 08/11/23 08:00 08/11/23 08:00 08/11/23 08:00 08/11/23 08:00 08/11/23 08:00 Laboratory Results - last 24 hr 08/11/23 05:: WBC 18.0 H, RBC 4.91, Hgb 15.3, Hct 45.7, MCV 93.0, MCH 31.1, MCHC 33.5, RDW 14.5, Plt Count 275, MPV 8.3, Neut % (Auto) 65.2, Lymph % (Auto) 25.5, [place] % (Auto) 6.9, Eos % (Auto) 1.4, Baso % (Auto) 0.9, Neut # (Auto) 11.7 H, Lymph # (Auto) 4.6 H, [place] # (Auto) 1.2 H, Eos # (Auto) 0.3, Baso # (Auto) 0.2, Total Counted 100, Neutrophils % (Manual) 63, Band Neutrophils % 1.0, Lymphocytes % (Manual) 25, Monocytes % (Manual) 11 H, Platelet Estimate Normal, RBC Morphology Normal, Sodium 138, Potassium 3.8, Chloride 107, Carbon Dioxide 21 L, Anion Gap 13.8, BUN 11 D, Creatinine 0.70, Estimated Creat Clear 131, Estimated GFR 92, Est GFR ( Amer) 112, Glucose 100, Calcium 9.1 I & O for Last 24 hours: Intake & Output 08/08/23 08/09/23 08/10/23 08/11/23 23:59 23:59 23:59 23:59 Intake Total 650 / 650 Output Total 0 / 0 0 / 0 0 / 0 Balance 0 / 0 650 / 650 0 / 0 Weight 177 lb 7 oz 175 lb 3.2 oz 173 lb 6.4 oz Constitutional Constitutional: no acute distress and cooperative *Routine HEENT Exam Eye: Present PERRL *Routine Respiratory Exam Respiratory: Present CTA bilaterally; Absent accessory muscle use, wheezes or crackles *Routine Cardiovascular Exam Cardiovascular: Present RRR, Normal S1 and Normal S2; Absent murmur, gallop or rubs Comments: Right radial cath site normal inspection and palpation *Routine Abdominal Exam Abdominal: Present soft; Absent tenderness *Routine Extremities Exam Extremities: Present pulses intact; Absent cyanosis or edema *Routine Skin Exam Skin: Present intact; Absent erythema or wounds *Routine Neurological Exam Neurological: Present alert and oriented X3 Routine Psychiatric Exam Psychiatric: Present cooperative Progress Note: A&P Assessment and plan (1) STEMI (ST elevation myocardial infarction): Status: Acute (2) CAD (coronary artery disease): Status: Acute (3) Leukocytosis: Status: Acute Assessment and Plan Assessment and Plan for All Diagnoses:: MV-CAD s/p AW-STEMI and NERISSA to LAD/RCA 08/09/2023 - new dx this admission - CCS = 0, EKG with anterior q-waves - LHC - LAD thrombectomy, multiple stents to RCA, LCX 30-40% reduced EF - ECHO - EF 25-30% - Plan: Cont ASA, Effient, Atorvastatin, Toprol. Pt will need cardiac rehab at discharge. HFrEF, Ischemic Cardiomyopathy - new dx this admission with EF 25% on ECHO post LAD STEMI - ECHO - EF 25-30% - Does not appear volume overloaded - Plan: Cont Entresto, Jardiance. No Aldactone due to low BP. LifeVest ordered, awaiting placement. Tob - advised complete cessation, pt agreeable to transdermal nicotine PRN HLD - LDL 145, TG 282 - Atorvastatin added this admission 08/10: Pt is CV stable for DC home following LifeVest placement. She needs cardi ac rehab at discharge and a 2 week f/u in our office. No lifting, pushing, pulling >10lbs for 5 days in right wrist. CV DC Meds: -Aspirin 81 mg 1 p.o. daily -Effient 10 mg 1 p.o. daily -Atorvastatin 80 mg 1 p.o. nightly -Entresto 24-26 mg 1 p.o. twice daily (if she cannot get coverage then changed to valsartan 80 mg daily) -Toprol-XL 25 mg 1 p.o. daily -Jardiance 10 mg 1 p.o. daily (if she cannot get coverage then JADE)
--- NOTE | 2023-08-11 11:00 | EXP.DC.SUM ---
General Admission date:: 08/09/23 Discharge date: 08/11/23 HPI HPI HPI: This is a 43-year-old female with past medical history of tobacco use disorder, hypertension who presents emergency department today with chest pain. EMS was called to the patient's home for chest pain that started around 9 this morning. She was noted to have a EKG with STEMI in the field which was activated. Upon arrival to the emergency department STEMI was confirmed and patient was taken to the [facility]. She underwent 3 stents with PCI with 1 to the LAD and 2 to the RCA. Post cath vital signs have been stable. She is admitted to the hospitalist service On my assessment patient is sleeping but arousable. States that she feels awful . States that she still has soreness in her chest. Repeat EKG with PVCs versus possible secondary type I block. Patient otherwise without acute abnormalities. Per cardiology, continue Effient and aspirin daily, echocardiogram in a.m. Hospital Course Hospital Course Hospital Course: Patient presented to hospital for anterior STEMI, patient underwent cardiac cath and Underwent successful LAD thrombectomy with PCI with 3 NERISSA. 1 to the LAD, 2 to the RCA. Patient needs lifevest at discharge. Patient cleared for discharge per cardiology with the following medications. Patient agreed with the discharge plan. Patient was also counseled on tobacco cessation. CV DC Meds: -Aspirin 81 mg 1 p.o. daily -Effient 10 mg 1 p.o. daily -Atorvastatin 80 mg 1 p.o. nightly -Entresto 24-26 mg 1 p.o. twice daily (if she cannot get coverage then changed to valsartan 80 mg daily) -Toprol-XL 25 mg 1 p.o. daily -Jardiance 10 mg 1 p.o. daily (if she cannot get coverage then DC) patient is discharged in stable condition and verbalized and agreed with the discharge plan Total time spent 38 mints, Exam Data for Last 24 hours Vital signs and Labs for Last 24 Hours: Temp Pulse Resp BP Pulse Ox O2 Del Method 98.3 F 67 19 108/42 L 93 L Room Air 08/11/23 08:00 08/11/23 08:00 08/11/23 08:00 08/11/23 08:00 08/11/23 08:00 08/11/23 08:50 Laboratory Results - last 24 hr 08/11/23 05:17: WBC 18.0 H, RBC 4.91, Hgb 15.3, Hct 45.7, MCV 93.0, MCH 31.1, MCHC 33.5, RDW 14.5, Plt Count 275, MPV 8.3, Neut % (Auto) 65.2, Lymph % (Auto) 25.5, [place] % (Auto) 6.9, Eos % (Auto) 1.4, Baso % (Auto) 0.9, Neut # (Auto) 11.7 H, Lymph # (Auto) 4.6 H, [place] # (Auto) 1.2 H, Eos # (Auto) 0.3, Baso # (Auto) 0.2, Total Counted 100, Neutrophils % (Manual) 63, Band Neutrophils % 1.0, Lymphocytes % (Manual) 25, Monocytes % (Manual) 11 H, Platelet Estimate Normal, RBC Morphology Normal, Sodium 138, Potassium 3.8, Chloride 107, Carbon Dioxide 21 L, Anion Gap 13.8, BUN 11 D, Creatinine 0.70, Estimated Creat Clear 131, Estimated GFR 92, Est GFR ( Amer) 112, Glucose 100, Calcium 9.1 I & O for Last 24 hours: Intake & Output 08/08/23 08/09/23 08/10/23 08/11/23 23:59 23:59 23:59 23:59 Intake Total 650 / 650 240 / 240 Output Total 0 / 0 0 / 0 0 / 0 Balance 0 / 0 650 / 650 240 / 240 Weight 80.484 kg 79.469 kg 78.653 kg Constitutional Constitutional: no acute distress *Routine HEENT Exam Head: Present normocephalic Eye: Present EOMI and PERRL ENT: Present mucous membranes moist *Routine Neck Exam Neck: Present supple; Absent lymphadenopathy *Routine Respiratory Exam Respiratory: Present CTA bilaterally *Routine Cardiovascular Exam Cardiovascular: Present RRR *Routine Abdominal Exam Abdominal: Present soft and normoactive bowel sounds; Absent tenderness *Routine Extremities Exam Extremities: Absent cyanosis, clubbing or edema *Routine Skin Exam Skin: Present warm; Absent rash *Routine Neurological Exam Neurological: Present alert and oriented X3 Results Data Completed and Pending Labs on day of discharge: Labs from last 24 hours 08/11/23 05:17 WBC 18.0 H RBC 4.91 Hgb 15.3 Hct 45.7 MCV 93.0 MCH 31.1 MCHC 33.5 RDW 14.5 Plt Count 275 MPV 8.3 Neut % (Auto) 65.2 Lymph % (Auto) 25.5 [place] % (Auto) 6.9 Eos % (Auto) 1.4 Baso % (Auto) 0.9 Neut # (Auto) 11.7 H Lymph # (Auto) 4.6 H [place] # (Auto) 1.2 H Eos # (Auto) 0.3 Baso # (Auto) 0.2 Total Counted 100 Neutrophils % (Manual) 63 Band Neutrophils % 1.0 Lymphocytes % (Manual) 25 Monocytes % (Manual) 11 H Platelet Estimate Normal RBC Morphology Normal Sodium 138 Potassium 3.8 Chloride 107 Carbon Dioxide 21 L Anion Gap 13.8 BUN 11 D Creatinine 0.70 Estimated Creat Clear 131 Estimated GFR 92 Est GFR ( Amer) 112 Glucose 100 Calcium 9.1 DS: Diagnosis Discharge Diagnosis (1) STEMI (ST elevation myocardial infarction): Status: Acute Code(s): I21.3 - ST elevation (STEMI) myocardial infarction of unspecified site Qualifiers: Involved coronary artery: L[place] coronary artery Qualified Code(s): I21.02 - ST elevation (STEMI) myocardial infarction involving left anterior descending coronary artery (2) CAD (coronary artery disease): Status: Acute Code(s): I25.10 - Atherosclerotic heart disease of [place] coronary artery without angina pectoris Qualifiers: Coronary Disease-Associated Artery/Lesion type: [place] artery (3) Leukocytosis: Status: Acute Code(s): D72.829 - Elevated white blood cell count, unspecified Qualifiers: Leukocytosis type: other Qualified Code(s): D72.828 - Other elevated white blood cell count Meds Home Medications and Allergies Home Medications Medication Instructions Recorded Confirmed Type aspirin 81 mg chewable tablet 81 mg PO DAILY 30 days #30 tabs 08/11/23 Rx atorvastatin 40 mg tablet 80 mg (2 x 40 mg) PO HS 30 days 08/11/23 Rx #60 tabs empagliflozin 10 mg tablet 10 mg PO DAILY 30 days #30 tabs 08/11/23 Rx (Jardiance) metoprolol succinate 25 mg 25 mg PO DAILY 30 days #30 tabs 08/11/23 Rx tablet,extended release 24 hr prasugrel 10 mg tablet 10 mg PO DAILY 30 days #30 tabs 08/11/23 Rx sacubitril 24 mg-valsartan 26 mg 1 tab PO BID 30 days #60 tabs 08/11/23 Rx tablet (Entresto) New Prescriptions to Start Prescriptions: aspirin Isaac Allred atorvastatin Chalino,Isaac empagliflozin [Jardiance] Isaac Allred metoprolol succinate Chalino,Isaac prasugrel Chalino,Isaac sacubitril-valsartan [Entresto] Isaac Allred Allergies Allergy/AdvReac Type Severity Reaction Status Date / Time No Known Allergies Allergy Verified 08/09/23 15:33 Discharge Plan Disposition Patient Disposition: Home, Self-Care Condition: Good Discharge Order Discharge Orders: Discharge Order (Routine); Ordered 08/11/23 Ordered By: Isaac Allred Follow up Plan Follow up with: Ozzie May MD [Staff Physician] - 08/23/23 10:15 am Prescriptions/Medication Reconciliation: New atorvastatin 40 mg Tablet 80 mg PO HS 30 Days Qty: 60 0RF aspirin 81 mg Tablet,Chewable 81 mg PO DAILY 30 Days Qty: 30 0RF metoprolol succinate 25 mg Tablet Extended Release 24 Hr 25 mg PO DAILY 30 Days Qty: 30 0RF prasugrel 10 mg Tablet 10 mg PO DAILY 30 Days Qty: 30 0RF Jardiance 10 mg Tablet 10 mg PO DAILY 30 Days Qty: 30 0RF Entresto 24-26 mg Tablet 1 tab PO BID 30 Days Qty: 60 0RF Problem Reconciliation Problems Reviewed?: Yes Patient Discharge Instructions ACTIVITY: Ambulate as tolerated DIET: continue same diet Patient Instructions: DI for Heart Attack, DI for Heart Failure, DI for Cardiac Catheterization, DI for Surgical Site Infection Providers Primary Care Provider: Provider,Referral Admit Provider: Isaac Allred Attending Provider: Isaac Allred
[2023-08-11 11:02] VITALS: BP 105/70; PULSE 69; RESP 19; TEMP 37.1; O2SAT 100
[2023-08-11 12:00] VITALS: PULSE 60
--- NOTE | 2023-08-11 13:19 | PC.NURSE ---
This RN was contacted by clinic pharmacy as patient is meds to beds. Clinic pharmacy asked if patient was self pay, this RN stated that patient had been approved for medicaid insurance today. Clinic pharmacy said they would try to get medicaid id numbers. Clinic pharmacy called and stated that insurance was not pulling through to pay for medications and listed roberto prices. This RN went to patient's room to inform patient. This RN stated to patient she has medicaid insurance but the pharmacy has not been able to pull the insurance through. Patient began to yell at this RN and stated that somebody had come into the room and told her that medications were not a problem and all we were waiting on is the lifevest so pt could be discharged. This RN asked the patient if she knew who came into the room in case I was misinformed. Patient stated she didn't know who it was and began to curse at this RN. This RN stated to patient that we want her to have her medications but had to keep her informed with clinic pharmacy and the insurance process. This RN then stated to patient that she did not need to yell and curse. Patient stated the hospital better release her. This RN stated to patient that she would find another nurse to help serve patient better and spoke to charge nurse about interaction.
--- NOTE | 2023-08-11 16:14 | PC.NURSE ---
I spoke with Coleman from cardiology who recommended patient stay until Mon. I relayed information to patient who stated she wasn't going to stay until Monday. House
--- NOTE | 2023-08-11 16:20 | PC.NURSE ---
I spoke with Coleman from cardiology about patient not being able to get her lifevest until Mon and if it was ok to dc her without it. He said he felt like it was a bad idea to leave unprotected. This information was relayed to patient by myself and guest house manager, KAREN. Patient stated she had already called her ride to come get her. Hospitalist (Dr Allred) also recommended pt stay until lifevest could be fitted. When discussing this with patient she refused to stay and demanded to be discharged. Pt was educated on dangers of leaving without lifevest. She stated she was leaving anyway so I explained she would need to leave AMA. She initially refused to sign AMA paper but changed her mind once her ride came. Pt was given verbal and written discharge instructions and educated on the risks of signing out AMA. She was instructed that [facility]. [facility] had a copay of $0 so [facility] delivered it to her room before leaving. She was instructed that her remaining prescriptions could be picked up at [facility]. She was also educated on the importance of taking her prescriptions as prescribed. Pt was given a prescription card and offered $20 in assistance by case management to help pay for the rest of her prescriptions. She stated she had $50 but wasn't going to spend her own money on the remaining balance. She was instructed that her [facility] had [facility] to [facility] and could be picked up there.
== END 2023-08-11 16:33 | disposition left against medical advice (07) | DRG 322 ==
LOC: ER 16:00 → CATHLAB 16:01 → 2ND 16:48
PROVIDERS: Internal Medicine; Nurse Practitioner Acute Care; Admitting Provider Internal Medicine; Emergency Provider Emergency Medicine; Visit Provider Internal Medicine
PROC: 027136Z Dilation of Coronary Artery, Two Arteries with Three Drug-eluting Intraluminal Devices, Percutaneous Approach (ICD-10-PCS; principal; 2023-08-09 15:30)
DX: I21.02 ST elevation (STEMI) myocardial infarction involving left anterior descending coronary artery (principal); I50.20 Unspecified systolic (congestive) heart failure; I25.10 Atherosclerotic heart disease of native coronary artery without angina pectoris; Z71.6 Tobacco abuse counseling; K21.9 Gastro-esophageal reflux disease without esophagitis; E78.5 Hyperlipidemia, unspecified; F17.200 Nicotine dependence, unspecified, uncomplicated; I25.5 Ischemic cardiomyopathy; O75.4 Other complications of obstetric surgery and procedures
CPT/HCPCS: 36415; 80048; 80061; 83735; 85007; 85025; 85347; 92928; 92941; 93005; 93306; 93458; 99152; 99153; 99285; C1725; C1769; C1874; C1876; C9600; C9606; J1644; Q9967